=== PATIENT | female | born 1985 | race Two or more races ===

== ENCOUNTER 2019-08-30 09:20 | Emergency (ER) | payer MEDICAID ==
[2019-08-30 10:20] LABS: BASOPHILS # (AUTO) 0.1 10^3/uL (0.0-0.1); BASOPHILS % (AUTO) 0.6 %; EOSINOPHILS # (AUTO) 0.1 10^3/uL (0.0-0.7); EOSINOPHILS % (AUTO) 0.6 %; HGB - HEMOGLOBIN 11.5 g/dL (12.0-16.0); LYMPHOCYTES % (AUTO) 7.1 %; MEAN CORPUSCULAR HEMOGLOBIN 27.4 pg (27.0-31.0); MEAN CORPUSCULAR HGB CONC 32.5 g/dL (32.0-36.0); MEAN CORPUSCULAR VOLUME 84.3 fL (81.0-99.0); MEAN PLATELET VOLUME 10.1 fL (7.9-10.8); MONOCYTES # (AUTO) 0.3 10^3/uL (0.0-1.0); MONOCYTES % (AUTO) 2.4 %; NEUTROPHILS # (AUTO) 12.5 10^3/uL (1.5-6.6); NEUTROPHILS % (AUTO) 88.8 %; PLT - PLATELET COUNT 335 10^3/uL (130-450)
[2019-08-30 10:29] LABS: ALBUMIN 4.1 g/dL (3.2-5.5); BILIRUBIN,TOTAL 0.6 mg/dL (0.2-1.0); CREATININE 3.2 mg/dL (0.4-1.0); TOTAL PROTEIN 8.3 g/dL (6.7-8.2)
[2019-08-30] MEDS ORDERED: INSULIN REGULAR HUMAN 100 UNIT/1 ML 10 ML MDV IVP STA (11:35)
[2019-08-30] MEDS ORDERED: METOCLOPRAMIDE 10 MG/2 ML VIAL IVP STA (11:35)
[2019-08-30] MEDS ORDERED: LORazepam 2 MG/ML VIAL IVP STA (11:35)
[2019-08-30] MEDS ORDERED: SODIUM CHLORIDE 0.9% 1,000 ML IV ONE (11:35)
[2019-08-30] MEDS ORDERED: ONDANSETRON 4 MG/2 ML VIAL IVP STA (11:36)
--- NOTE | 2019-08-30 11:38 | ED Physician Documentation ---
PD HPI ABD PAIN - Stated complaint Stated Complaint: VOMITING - Chief complaint Chief Complaint: Abd Pain - History obtained from History obtained from: Patient, Friend (boyfriend) - History of Present Illness Timing - onset: Other (33-year-old woman with history of type 1 diabetes with complications including gastroparesis and renal insufficiency presents with 3 days of vomiting consistent with prior episodes of gastroparesis, also mild abdominal pain but that is really not too bad, mostly she complains of nausea and anxiety. She tried Reglan at home which was ineffective. No constipation.) Review of Systems Constitutional: denies: Fever, Chills Nose: denies: Rhinorrhea / runny nose, Congestion Respiratory: denies: Dyspnea, Cough GI: reports: Nausea, Vomiting. 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 - Present Medications Home Medications: Ambulatory Orders Medication Instructions Recorded Confirmed Carvedilol 12.5 mg PO DAILY 07/17/19 07/17/19 Escitalopram Oxalate 5 mg PO DAILY 07/17/19 07/17/19 Metoclopramide HCl [Metoclopramide 10 mg PO Q6H PRN #15 tab.rapdis 07/17/19 HCl Odt] Omeprazole 20 mg PO BID 07/17/19 07/17/19 Spironolactone 25 mg PO DAILY 07/17/19 07/17/19 Torsemide 100 mg PO DAILY 07/17/19 07/17/19 amLODIPine [Norvasc] 5 mg PO DAILY 07/17/19 07/17/19 Ondansetron Odt [Zofran] 4 mg TL Q6H PRN #10 tablet 08/30/19 Scopolamine 1 each TD Q3D PRN #7 patch.td.3 08/30/19 - Allergies Allergies/Adverse Reactions: Allergies Allergy/AdvReac Type Severity Reaction Status Date / Time No Known Drug Allergies Allergy Verified 08/30/19 09:52 - Social History Does the pt smoke?: No Smoking Status: Never smoker Does the pt drink ETOH?: No Does the pt have substance abuse?: Yes - Immunizations Immunizations are current?: Yes PD ED PE NORMAL - Vitals Vital signs reviewed: Yes - General General: Alert and oriented X 3, Other (Shaking and anxious) - Cardiac Cardiac: RRR, No murmur - Respiratory Respiratory: No respiratory distress, Clear bilaterally - Abdomen Abdomen: Soft, Non tender - Neuro Neuro: Alert and oriented X 3, Normal speech Results - Vitals Vitals: Vital Signs - 24 hr 08/30/19 09:47 Heart Rate 120 H Respiratory 18 Rate Blood Pressure 193/135 H O2 Saturation 97 Oxygen O2 Source Room air - Labs Labs: Laboratory Tests 08/30/19 08/30/19 10:10 10:10 WBC 14.0 H RBC 4.20 Hgb 11.5 L Hct 35.4 L MCV 84.3 MCH 27.4 MCHC 32.5 RDW 14.0 Plt Count 335 MPV 10.1 Neut # (Auto) 12.5 H Lymph # (Auto) 1.0 [place] # (Auto) 0.3 Eos # (Auto) 0.1 Baso # (Auto) 0.1 Absolute Nucleated RBC 0.00 Nucleated RBC % 0.0 Sodium 136 Potassium 3.9 Chloride 101 Carbon Dioxide 22 Anion Gap 13.0 BUN 41 H Creatinine 3.2 H Estimated GFR (MDRD) 17 L Glucose 323 H Calcium 9.0 Total Bilirubin 0.6 AST 17 ALT 12 Alkaline Phosphatase 109 Total Protein 8.3 H Albumin 4.1 Globulin 4.2 Albumin/Globulin Ratio 1.0 Lipase 47 PD MEDICAL DECISION MAKING - ED course ED course: 33-year-old woman with type 1 diabetes and result in gastroparesis and chronic renal insufficiency presents with intractable vomiting at home not responsive to Reglan not associated with significant pain but it is associated with anxiety. After the administration of Reglan and Ativan And also some IV insulin for her hyperglycemia she was feeling much better and passed an oral challenge. Her renal function is stable from prior labs. Departure - Departure Disposition: 01 Home, Self Care Clinical Impression: Gastroparesis due to DM Chronic renal failure Qualifiers: Chronic kidney disease stage: stage 4 (severe) Qualified Code(s): N18.4 - Chronic kidney disease, stage 4 (severe) Condition: Good Record reviewed to determine appropriate education?: Yes Instructions: ED Diabetic Gastroparesis Prescriptions: Ondansetron Odt [Zofran] 4 mg TL Q6H PRN #10 tablet PRN Reason: Nausea / Vomiting Scopolamine 1 each TD Q3D PRN #7 patch.td.3 PRN Reason: Nausea / Vomiting Comments: Call your doctor to arrange a follow-up appointment, make the next available appointment. In the interim, return anytime if worse or if new symptoms develop. Your blood pressure was elevated today on check into the emergency department. This does not mean that you have hypertension, it is a common phenomenon to come to the emergency department and have elevated blood pressure. I recommend that you see your primary care physician within the week to have it rechecked when you are feeling better.
[2019-08-30 13:15] VITALS: BP 166/109
== END 2019-08-30 13:18 | disposition home or self-care (01) ==
LOC: ED 09:20
DX: E10.43 Type 1 diabetes mellitus with diabetic autonomic (poly)neuropathy (principal); K31.84 Gastroparesis; E10.65 Type 1 diabetes mellitus with hyperglycemia; E10.22 Type 1 diabetes mellitus with diabetic chronic kidney disease; I12.9 Hypertensive chronic kidney disease with stage 1 through stage 4 chronic kidney disease, or unspecified chronic kidney disease; N18.4 Chronic kidney disease, stage 4 (severe); F41.9 Anxiety disorder, unspecified
CPT/HCPCS: 36415; 80053; 83690; 85025; 96361; 96374; 99284; 99285; J1815; J2060; J2765

== ENCOUNTER 2020-11-23 04:15 | Emergency (ER) | payer MEDICAID ==
--- NOTE | 2020-11-23 04:22 | ED Physician Documentation ---
PD HPI ABD PAIN - Stated complaint Stated Complaint: AB PX/VOMITING - History obtained from History obtained from: Patient - History of Present Illness Timing - onset: How many days ago (4-5) Timing - duration: Days (4-5) Timing - details: Abrupt onset, Still present, Waxing and waning Quality: Cramping, Aching, Pain Location: Epigastric, Periumbilical Radiation: No: Lower back, Right flank Improved by: Meds (Somewhat improved by Reglan at home, but then not keeping that down.). No: Eating Worsened by: Eating Associated symptoms: Nausea, Vomiting. No: Fever, Hematemesis, Diarrhea, Hematochezia, Dysuria Similar symptoms before: Diagnosis (diabetic gastroparesis, with periodic exacerbations similar to this.) Recently seen: Emergency Dept (She has 2 visits on the at [facility] with IV fluids medications and lab testing as well as urinalysis. She improved each time and was discharged home. 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 - Present Medications Home Medications: Ambulatory Orders Medication Instructions Recorded Confirmed Carvedilol 12.5 mg PO DAILY 07/17/19 11/23/20 Escitalopram Oxalate 5 mg PO DAILY 07/17/19 11/23/20 Metoclopramide HCl [Metoclopramide 10 mg PO Q6H PRN #15 tab.rapdis 07/17/19 11/23/20 HCl Odt] Omeprazole 20 mg PO BID 07/17/19 11/23/20 Spironolactone 25 mg PO DAILY 07/17/19 07/17/19 Torsemide 100 mg PO DAILY 07/17/19 11/23/20 amLODIPine [Norvasc] 5 mg PO DAILY 07/17/19 11/23/20 Ondansetron Odt [Zofran] 4 mg TL Q6H PRN #10 tablet 08/30/19 11/23/20 Scopolamine 1 each TD Q3D PRN #7 patch.td.3 08/30/19 11/23/20 Promethazine Supp [Phenergan Supp] 25 mg [place] Q6H PRN #10 supp 11/23/20 - Allergies Allergies/Adverse Reactions: Allergies Allergy/AdvReac Type Severity Reaction Status Date / Time No Known Drug Allergies Allergy Verified 08/30/19 09:52 - Social History Does the pt smoke?: No Smoking Status: Never smoker Does the pt drink ETOH?: No Does the pt have substance abuse?: Yes - Immunizations Immunizations are current?: Yes PD ED PE NORMAL - Vitals Vital signs reviewed: Yes - General General: Alert and oriented X 3, Well developed/nourished, Other (appears anxious and uncomfortable. Rocking in bed that she says is due to anxiety. ) - HEENT HEENT: Pharynx benign. No: Moist mucous membranes - Neck Neck: Supple, no meningeal sign, No adenopathy - Cardiac Cardiac: No: RRR (tachycardic but regular) - Respiratory Respiratory: Clear bilaterally - Abdomen Abdomen: Normal bowel sounds, Soft, Non distended, No organomegaly, Other (She is tender in the epigastric area without percussion or rebound tenderness. There are some mild guarding to palpation. Not particularly tender in the right upper quadrant per se. Mild general distention with decreased bowel sounds.) - Back Back: No CVA TTP - Derm Derm: Normal color, Warm and dry - Extremities Extremities: Normal ROM s pain, No edema, No calf tenderness / cord - Neuro Neuro: Alert and oriented X 3, No motor deficit, Normal speech Eye Opening: Spontaneous Motor: Obeys Commands Verbal: Oriented GCS Score: 15 Results - Vitals Vitals: Vital Signs - 24 hr 11/23/20 11/23/20 11/23/20 04:21 06:26 07:38 Temperature 37 C 36.8 C Heart Rate 110 H 93 102 H Respiratory 19 16 15 Rate Blood Pressure 177/137 H 167/79 H 138/86 H O2 Saturation 100 98 98 Oxygen O2 Source Room air - Labs Labs: Laboratory Tests 11/23/20 11/23/20 11/23/20 05:12 05:12 05:12 WBC 12.6 H RBC 3.16 L Hgb 9.0 L Hct 27.2 L MCV 86.1 MCH 28.5 MCHC 33.1 RDW 13.2 Plt Count 361 MPV 8.9 Neut # (Auto) 10.8 H Lymph # (Auto) 1.1 L [place] # (Auto) 0.4 Eos # (Auto) 0.0 Baso # (Auto) 0.1 Absolute Nucleated RBC 0.00 Nucleated RBC % 0.0 VBG pH 7.402 VBG pCO2 33.3 L VBG pO2 82.0 H VBG HCO3 20.3 L VBG Total CO2 21.3 L VBG O2 Saturation 96.2 H VBG Base Excess -3.9 L Sodium 134 L Potassium 4.0 Chloride 99 L Carbon Dioxide 19 L Anion Gap 16.0 H BUN 23 H Creatinine 3.9 H Estimated GFR (MDRD) 13 L Glucose 325 H Calcium 8.9 Total Bilirubin 1.0 AST 22 ALT 16 Alkaline Phosphatase 90 Total Protein 7.7 Albumin 3.7 Globulin 4.0 Albumin/Globulin Ratio 0.9 L Lipase 22 Serum Ketones SMALL H - Rads (name of study) abd/pelvic CT Radiology: Prelim report reviewed (No bowel obstruction or other acute obvious process. Mild wall thickening of the bladder consider cystitis.), See rad report PD MEDICAL DECISION MAKING - ED course Complexity details: reviewed results (abd CT without acute process (concern for cystitis, but UA normal yesterday).), re-evaluated patient (The patient states she is feeling better after IV fluids and medications. She had some applesauce and fluids and was able to keep them down without nausea. This is her third visit in 2 days however and I offered trying to see about observation/admission. She prefers going home at this point.), considered differential (Third ER visit in 2 days for episode of gastroparesis. We will give IV fluids and medications again and check labs. CT to evaluate for obstruction/etc.), d/w patient Departure - Departure Disposition: 01 Home, Self Care Clinical Impression: Diabetic gastroparesis associated with type 1 diabetes mellitus Nausea and vomiting Qualifiers: Vomiting type: unspecified Vomiting Intractability: intractable Qualified Code(s): R11.2 - Nausea with vomiting, unspecified Condition: Stable Record reviewed to determine appropriate education?: Yes Instructions: ED Nausea Vomiting Prescriptions: Promethazine Supp [Phenergan Supp] 25 mg [place] Q6H PRN #10 supp PRN Reason: Nausea / Vomiting Comments: Small frequent fluids at home. Low-salt diet. Continue your usual medications. Metoclopramide if needed for nausea. Alternatively use promethazine suppository every 6 hours if needed. Follow-up with your primary care if not improved well over the next few days and return to the ER as needed.
[2020-11-23] MEDS ORDERED: SODIUM CHLORIDE 0.9% 1,000 ML IV STA (04:31)
[2020-11-23] MEDS ORDERED: FAMOTIDINE 20 MG/2 ML VIAL IVP STA (04:32)
[2020-11-23] MEDS ORDERED: LORazepam 2 MG/ML VIAL IVP STA (04:32)
[2020-11-23] MEDS ORDERED: DROPERIDOL 5 MG/2 ML VIAL IVP STA (04:32)
[2020-11-23 05:17] LABS: BASOPHILS # (AUTO) 0.1 10^3/uL (0.0-0.1); BASOPHILS % (AUTO) 0.4 %; EOSINOPHILS % (AUTO) 0.1 %; HCT - HEMATOCRIT 27.2 % (37.0-47.0); LYMPHOCYTES # (AUTO) 1.1 10^3/uL (1.5-3.5); LYMPHOCYTES % (AUTO) 8.8 %; MEAN CORPUSCULAR HEMOGLOBIN 28.5 pg (27.0-31.0); MEAN CORPUSCULAR HGB CONC 33.1 g/dL (32.0-36.0); MEAN CORPUSCULAR VOLUME 86.1 fL (81.0-99.0); MEAN PLATELET VOLUME 8.9 fL (7.9-10.8); MONOCYTES # (AUTO) 0.4 10^3/uL (0.0-1.0); MONOCYTES % (AUTO) 3.1 %; NEUTROPHILS # (AUTO) 10.8 10^3/uL (1.5-6.6); NEUTROPHILS % (AUTO) 86.4 %; PLT - PLATELET COUNT 361 10^3/uL (130-450); RED BLOOD COUNT 3.16 10^6/uL (4.20-5.40); RED CELL DISTRIBUTION WIDTH 13.2 % (12.0-15.0); VBG BASE EXCESS -3.9 mmol/L (-2 - +2); VBG HCO3 20.3 mmol/L (23-28); VBG OXYGEN SATURATION 96.2 % (60-80); VBG PCO2 33.3 mmHg (41-51); VBG PH 7.402 (7.31-7.41); VBG TOTAL CO2 21.3 mmol/L (24-29); WHITE BLOOD COUNT 12.6 x10^3/uL (4.8-10.8)
[2020-11-23 05:21] LABS: KETONES, SERUM (ACETEST) SMALL (NEGATIVE)
[2020-11-23] MEDS ORDERED: diazePAM INJ 5 MG/ML SYRINGE IM STA (05:29)
[2020-11-23 05:30] LABS: ALBUMIN 3.7 g/dL (3.2-5.5); ALBUMIN/GLOBULIN RATIO 0.9 (1.0-2.2); ALKALINE PHOSPHATASE 90 IU/L (42-121); ALT ALANINE AMINOTRANSFERASE 16 IU/L (10-60); AST ASPARTATE AMINOTRANSFERASE 22 IU/L (10-42); BUN - BLOOD UREA NITROGEN 23 mg/dL (6-20); CALCIUM 8.9 mg/dL (8.5-10.3); CARBON DIOXIDE - CO2 19 mmol/L (21-32); CHLORIDE 99 mmol/L (101-111); CREATININE 3.9 mg/dL (0.4-1.0); GFR - MDRD 13 (>89); GLUCOSE 325 mg/dL (70-100); LIPASE 22 U/L (22-51); SODIUM 134 mmol/L (135-145); TOTAL PROTEIN 7.7 g/dL (6.7-8.2)
[2020-11-23] MEDS ORDERED: KETOROLAC 30 MG/ML VIAL IM STA (05:30)
[2020-11-23 08:12] VITALS: BP 149/70
--- NOTE | 2020-11-23 13:49 | CT Report ---
PROCEDURE: Abdomen/Pelvis WO INDICATIONS: upper abd pain and vomiting 4 days; CRF TECHNIQUE: Noncontrast 5 mm thick sections acquired from the diaphragms to the symphysis. 5 mm coronal and sagi ttal reformats were then performed. For radiation dose reduction, the following was used: automated exposure control, adjustment of mA and/or kV according to patient size. COMPARISON: None. FINDINGS: Image quality: Excellent. ABDOMEN: Lung bases: Lung bases are clear. No pleural effusion. Heart size is normal. Solid organs: Liver and spleen are normal in size. Gallbladder is unremarkable Pancreas is normal in contours. No adrenal nodules. Kidneys are normal in size, without hydronephrosis or nephrolithia sis. Peritoneum and bowel: Unenhanced bowel loops demonstrate normal wall thickness and caliber. Normal a ppendix. No free fluid or air. Nodes and vessels: No retroperitoneal or mesenteric adenopathy by size criteria. Aorta and inferior vena cava are normal in caliber. Miscellaneous: No ventral hernias. Mild anasarca. PELVIS: Genitourinary: There may be bladder wall thickening. Lateral most decompressed. No bladder stone. Ant everted uterus. Trace free fluid in the pelvis. Miscellaneous: No inguinal hernias or adenopathy. Bones: No suspicious bony lesions. No vertebral body compression fractures. IMPRESSION: 1. No bowel obstruction. 2. Question of mild bladder wall thickening. This could be seen in cystitis. 3. Anasarca. Trace free fluid in the pelvic cul-de-sac. 4. No hydronephrosis. No kidney stones. This report is concordant with the overnight preliminary interpretation. Reviewed by: Leonides Gaitan MD on 11/23/2020 12:48 PM [facility] Approved by: Leonides Gaitan MD on 11/23/2020 12:48 PM [facility] Station ID: [id number]
== END 2020-11-23 08:30 | disposition home or self-care (01) ==
LOC: ED 04:15
DX: E10.43 Type 1 diabetes mellitus with diabetic autonomic (poly)neuropathy (principal); K31.84 Gastroparesis; I10 Essential (primary) hypertension
CPT/HCPCS: 36415; 80053; 82009; 82803; 83690; 85025; 96361; 96374; 99284

== ENCOUNTER 2020-12-01 14:18 | Emergency (ER) | payer MEDICAID ==
[2020-12-01] MEDS ORDERED: SODIUM CHLORIDE 0.9% 1,000 ML IV STA (14:31)
[2020-12-01] MEDS ORDERED: KETOROLAC 30 MG/ML VIAL IVP STA (14:36)
[2020-12-01] MEDS ORDERED: DROPERIDOL 5 MG/2 ML VIAL IVP STA (14:36)
--- NOTE | 2020-12-01 14:38 | ED Physician Documentation ---
PD HPI ABD PAIN - Stated complaint Stated Complaint: VOMITING - Chief complaint Chief Complaint: Abd Pain - History obtained from History obtained from: Patient - Additional information Additional information: 35-year-old woman with history of kidney failure but not on dialysis, type 1 diabetes, diabetic gastroparesis, anxiety, and daily marijuana use for several years presents with an exacerbation of upper abdominal pain and vomiting. This is a not uncommon issue for her. She is very anxious with it. She tried Reglan but it is not working. No fevers. No changes in bowel habits. 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 - Present Medications Home Medications: Ambulatory Orders Medication Instructions Recorded Confirmed Carvedilol 12.5 mg PO DAILY 07/17/19 12/01/20 Metoclopramide HCl [Metoclopramide 10 mg PO Q6H PRN #15 tab.rapdis 07/17/19 12/01/20 HCl Odt] amLODIPine [Norvasc] 5 mg PO DAILY 07/17/19 12/01/20 LORazepam [Ativan] 1 mg PO TID PRN #5 tablet 12/01/20 - Allergies Allergies/Adverse Reactions: Allergies Allergy/AdvReac Type Severity Reaction Status Date / Time No Known Drug Allergies Allergy Verified 12/01/20 14:24 - Social History Does the pt smoke?: No Smoking Status: Never smoker Does the pt drink ETOH?: No Does the pt have substance abuse?: Yes - Immunizations Immunizations are current?: Yes PD ED PE NORMAL - Vitals Vital signs reviewed: Yes - General General: Alert and oriented X 3, Other (She is shaky and quite anxious) - HEENT HEENT: PERRL, EOMI - Neck Neck: Supple, no meningeal sign, No bony TTP - Cardiac Cardiac: RRR, No murmur - Respiratory Respiratory: No respiratory distress, Clear bilaterally - Abdomen Abdomen: Normal bowel sounds, Soft, Non tender - Back Back: No CVA TTP, No spinal TTP - Derm Derm: Normal color, Warm and dry - Extremities Extremities: No edema, No calf tenderness / cord - Neuro Neuro: Alert and oriented X 3, Normal speech Results - Vitals Vitals: Vital Signs - 24 hr 12/01/20 12/01/20 12/01/20 14:27 15:00 15:14 Temperature 36.5 C Heart Rate 99 99 88 Respiratory 18 16 16 Rate Blood Pressure 200/99 H 161/120 H 228/109 H O2 Saturation 100 95 96 12/01/20 12/01/20 12/01/20 15:38 17:12 17:57 Temperature Heart Rate 93 117 H 90 Respiratory 16 16 16 Rate Blood Pressure 218/113 H 187/109 H 205/103 H O2 Saturation 96 97 98 Oxygen O2 Source Room air - Labs Labs: Laboratory Tests 12/01/20 12/01/20 12/01/20 14:31 14:41 14:41 WBC 10.9 H RBC 3.86 L Hgb 11.0 L Hct 33.6 L MCV 87.0 MCH 28.5 MCHC 32.7 RDW 14.0 Plt Count 360 MPV 11.2 H Neut # (Auto) 9.5 H Lymph # (Auto) 0.8 L [place] # (Auto) 0.4 Eos # (Auto) 0.0 Baso # (Auto) 0.1 Absolute Nucleated RBC 0.00 Nucleated RBC % 0.0 VBG pH VBG pCO2 VBG pO2 VBG HCO3 VBG Total CO2 VBG O2 Saturation VBG Base Excess Sodium 134 L Potassium 4.6 Chloride 99 L Carbon Dioxide 23 Anion Gap 12.0 BUN 21 H Creatinine 3.6 H Estimated GFR (MDRD) 15 L Glucose 371 H POC Whole Bld Glucose 348 H Calcium 9.2 Magnesium 1.8 Total Bilirubin 0.8 AST 20 ALT 19 Alkaline Phosphatase 110 Total Protein 8.1 Albumin 4.0 Globulin 4.1 Albumin/Globulin Ratio 1.0 Lipase 49 Urine Color Urine Clarity Urine pH Ur Specific [place] Urine Protein Urine Glucose (UA) Urine Ketones Urine Occult Blood Urine Nitrite Urine Bilirubin Urine Urobilinogen Ur Leukocyte Esterase Urine RBC Urine WBC Ur Squamous Epith Cells Amorphous Sediment Urine Bacteria Urine Casts Urine Mucus Ur Microscopic Review Urine Culture Comments Urine HCG, Qual Urine Opiates Screen Ur Oxycodone Screen Urine Methadone Screen Ur Propoxyphene Screen Ur Barbiturates Screen Ur Tricyclics Screen Ur Phencyclidine Scrn Ur Amphetamine Screen U Methamphetamines Scrn U Benzodiazepines Scrn Urine Cocaine Screen U Cannabinoids Screen Serum Ketones NEGATIVE 12/01/20 12/01/20 14:41 16:53 WBC RBC Hgb Hct MCV MCH MCHC RDW Plt Count MPV Neut # (Auto) Lymph # (Auto) [place] # (Auto) Eos # (Auto) Baso # (Auto) Absolute Nucleated RBC Nucleated RBC % VBG pH 7.386 VBG pCO2 39.1 L VBG pO2 57.5 H VBG HCO3 22.9 L VBG Total CO2 24.1 VBG O2 Saturation 90.5 H VBG Base Excess -1.9 Sodium Potassium Chloride Carbon Dioxide Anion Gap BUN Creatinine Estimated GFR (MDRD) Glucose POC Whole Bld Glucose Calcium Magnesium Total Bilirubin AST ALT Alkaline Phosphatase Total Protein Albumin Globulin Albumin/Globulin Ratio Lipase Urine Color YELLOW Urine Clarity CLEAR Urine pH 8.0 H Ur Specific [place] 1.020 Urine Protein >=300 H Urine Glucose (UA) >=1000 H Urine Ketones NEGATIVE Urine Occult Blood TRACE-INTA Urine Nitrite NEGATIVE Urine Bilirubin NEGATIVE Urine Urobilinogen 0.2 (NORMAL) Ur Leukocyte Esterase NEGATIVE Urine RBC 0-5 Urine WBC 4-5 Ur Squamous Epith Cells FEW Squamous Amorphous Sediment Rare Urine Bacteria None Seen Urine Casts 0-2 Hyaline Casts Urine Mucus Few Strands Ur Microscopic Review INDICATED Urine Culture Comments NOT INDICATED Urine HCG, Qual NEGATIVE Urine Opiates Screen NEGATIVE Ur Oxycodone Screen NEGATIVE Urine Methadone Screen NEGATIVE Ur Propoxyphene Screen NEGATIVE Ur Barbiturates Screen NEGATIVE Ur Tricyclics Screen NEGATIVE Ur Phencyclidine Scrn NEGATIVE Ur Amphetamine Screen NEGATIVE U Methamphetamines Scrn NEGATIVE U Benzodiazepines Scrn POSITIVE H Urine Cocaine Screen NEGATIVE U Cannabinoids Screen POSITIVE H Serum Ketones PD MEDICAL DECISION MAKING - ED course ED course: 35-year-old woman with an exacerbation of upper abdominal pain and vomiting. The pattern in association with severe anxiety is actually more consistent with cannabinoid hyperemesis than it is with diabetic gastroparesis, but may be a component of both. She was treated treated stepwise medications here with improvement and passed an oral challenge. Her renal function is at recent baseline. Departure - Departure Disposition: 01 Home, Self Care Clinical Impression: Vomiting, Abdominal pain, Diabetic gastroparesis associated with type 1 diabetes mellitus Condition: Good Record reviewed to determine appropriate education?: Yes Instructions: ED Nausea Vomiting Prescriptions: LORazepam [Ativan] 1 mg PO TID PRN #5 tablet PRN Reason: Anxiety Comments: As discussed, although you have known gastroparesis, daily marijuana use can cause what is known as "cannabinoid hyperemesis syndrome." This has symptoms very similar to gastroparesis but is associated with more anxiety which is why I suspect you may have this. I recommend stopping all marijuana use to see if your symptoms become better controlled. Discharge Date/Time: 12/01/20 18:12
[2020-12-01] MEDS ORDERED: diazePAM INJ 5 MG/ML SYRINGE IVP STA (15:14)
[2020-12-01 15:15] LABS: BASOPHILS # (AUTO) 0.1 10^3/uL (0.0-0.1); BASOPHILS % (AUTO) 0.8 %; EOSINOPHILS % (AUTO) 0.2 %; HCT - HEMATOCRIT 33.6 % (37.0-47.0); LYMPHOCYTES # (AUTO) 0.8 10^3/uL (1.5-3.5); LYMPHOCYTES % (AUTO) 7.6 %; MEAN CORPUSCULAR HEMOGLOBIN 28.5 pg (27.0-31.0); MEAN CORPUSCULAR HGB CONC 32.7 g/dL (32.0-36.0); MEAN PLATELET VOLUME 11.2 fL (7.9-10.8); MONOCYTES # (AUTO) 0.4 10^3/uL (0.0-1.0); MONOCYTES % (AUTO) 3.4 %; NEUTROPHILS # (AUTO) 9.5 10^3/uL (1.5-6.6); NEUTROPHILS % (AUTO) 87.3 %; PLT - PLATELET COUNT 360 10^3/uL (130-450); RED BLOOD COUNT 3.86 10^6/uL (4.20-5.40); WHITE BLOOD COUNT 10.9 x10^3/uL (4.8-10.8)
[2020-12-01 15:20] LABS: VBG BASE EXCESS -1.9 mmol/L (-2 - +2); VBG HCO3 22.9 mmol/L (23-28); VBG OXYGEN SATURATION 90.5 % (60-80); VBG PCO2 39.1 mmHg (41-51); VBG PH 7.386 (7.31-7.41); VBG PO2 57.5 mmHg (25-47); VBG TOTAL CO2 24.1 mmol/L (24-29)
[2020-12-01 15:26] LABS: ALKALINE PHOSPHATASE 110 IU/L (42-121); ALT ALANINE AMINOTRANSFERASE 19 IU/L (10-60); AST ASPARTATE AMINOTRANSFERASE 20 IU/L (10-42); BILIRUBIN,TOTAL 0.8 mg/dL (0.2-1.0); BUN - BLOOD UREA NITROGEN 21 mg/dL (6-20); CALCIUM 9.2 mg/dL (8.5-10.3); CARBON DIOXIDE - CO2 23 mmol/L (21-32); CHLORIDE 99 mmol/L (101-111); CREATININE 3.6 mg/dL (0.4-1.0); GFR - MDRD 15 (>89); GLUCOSE 371 mg/dL (70-100); LIPASE 49 U/L (22-51); MAGNESIUM 1.8 mg/dL (1.7-2.8); POTASSIUM 4.6 mmol/L (3.5-5.0); SODIUM 134 mmol/L (135-145); TOTAL PROTEIN 8.1 g/dL (6.7-8.2)
[2020-12-01 16:41] LABS: KETONES, SERUM (ACETEST) NEGATIVE (NEGATIVE)
[2020-12-01 16:57] LABS: MUDS CUTOFF CONCENTRATIONS CUTOFF CONC BELOW:
[2020-12-01 17:00] LABS: BILIRUBIN,URINE NEGATIVE (NEGATIVE); GLUCOSE, URINE (UA) >=1000 mg/dL (NEGATIVE); KETONES,URINE (UA) NEGATIVE (NEGATIVE); LEUKOCYTE ESTERASE, URINE NEGATIVE (NEGATIVE); NITRITE,URINE NEGATIVE (NEGATIVE); OCCULT BLOOD,URINE TRACE-INTA (NEGATIVE); PROTEIN,URINE >=300 mg/dL (NEGATIVE); UROBILINOGEN,URINE 0.2 (NORMAL) E.U./dL (NORMAL)
[2020-12-01] MEDS ORDERED: HALOPERIDOL 5 MG/ML VIAL IVP ONE (17:00)
[2020-12-01 17:01] LABS: CLARITY,URINE CLEAR (CLEAR); HCG UR QUAL NEGATIVE
[2020-12-01 17:03] LABS: AMORPHOUS SEDIMENT,UR Rare /LPF; BACTERIA,URINE None Seen /HPF (None Seen); CASTS, URINE 0-2 Hyaline Casts /LPF; MUCUS,URINE Few Strands; RBC,URINE 0-5 /HPF (0-5); SQUAMOUS EPITHELIAL CELL,UR FEW Squamous (<= Few)
[2020-12-01 17:10] LABS: AMPHETAMINE SCREEN,URINE NEGATIVE (NEGATIVE); BARBITURATE SCREEN,UR NEGATIVE (NEGATIVE); BENZODIAZEPINES SCREEN, URINE POSITIVE (NEGATIVE); COCAINE SCREEN URINE NEGATIVE (NEGATIVE); METHADONE SCREEN, URINE NEGATIVE (NEGATIVE); METHAMPHETAMINES SCREEN, URINE NEGATIVE (NEGATIVE); OPIATE SCREEN, URINE NEGATIVE (NEGATIVE); OXYCODONE SCREEN, URINE NEGATIVE (NEGATIVE); PROPOXYPHENE SCREEN, URINE NEGATIVE (NEGATIVE); THC CANNABINOID SCREEN, URINE POSITIVE (NEGATIVE); TRICYCLIC ANTIDEPRESSANT,URINE NEGATIVE (NEGATIVE)
[2020-12-01] MEDS ORDERED: LORazepam 2 MG/ML VIAL IVP STA (17:33)
[2020-12-01 17:57] VITALS: BP 205/103
== END 2020-12-01 18:12 | disposition home or self-care (01) ==
LOC: ED 14:18
DX: E10.43 Type 1 diabetes mellitus with diabetic autonomic (poly)neuropathy (principal); K31.84 Gastroparesis; R10.10 Upper abdominal pain, unspecified; R11.10 Vomiting, unspecified; F12.90 Cannabis use, unspecified, uncomplicated; F41.9 Anxiety disorder, unspecified; I10 Essential (primary) hypertension
CPT/HCPCS: 36415; 80053; 80306; 81001; 81025; 82009; 82803; 83690; 83735; 85025; 96374; 96375; 99284; 99285; J2060; 81003; 87086